=== PATIENT | female | born 1970 | race Caucasian/White ===

== ENCOUNTER → 2022-01-08 08:14 | Outpatient (BNVA) | payer OTHER, SELFPAY | PROVIDERS: PCP Family Medicine; Visit Provider Hospitalist | DX: U09.9 Post COVID-19 condition, unspecified (principal); R05.9 Cough, unspecified; R06.00 Dyspnea, unspecified | CPT/HCPCS: 94010; 94640 ==

== ENCOUNTER 2022-01-14 13:10 | Outpatient (REF) | payer OTHER, SELFPAY ==
--- NOTE | ~2022-01-14 | XR_ITS ---
EXAMINATION: XR CHEST CLINICAL INFORMATION: Chest pain COMPARISON: None TECHNIQUE: 2 views of the chest were obtained. FINDINGS: No significant abnormality is noted involving the heart, lungs, mediastinum, bony thorax or soft tissues. XR/XR chest 2V IMPRESSION: Unremarkable examination.
--- NOTE | 2022-01-14 13:20 | ECG_ITS ---
Test Reason : COPD Blood Pressure : / mmHG Vent. Rate : 086 BPM Atrial Rate : 086 BPM P-R Int : 116 ms QRS Dur : 082 ms QT Int : 356 ms P-R-T Axes : 025 062 061 degrees QTc Int : 426 ms Normal sinus rhythm Normal ECG No previous ECGs available Referred By: Osmani Kilgore Electronically Signed By:NICHOLE KING
[2022-01-14 13:25] LABS: MANUAL DIFF FLAG NO
[2022-01-14 13:53] LABS: Basophils Percent Auto 0.4 % (0-2); Hematocrit 41.1 % (37.0-47.0); Hemoglobin 12.8 g/dl (12.0-16.0); Imm Gran Abs Auto 0.09 X10*3/uL (0.00-0.03); Imm Gran Pct Auto 0.9 % (0.0-0.4); Lymphocytes Percent Auto 10.2 % (20-40); Mean Corpuscular HGB Conc 31.1 g/dl (31.0-35.0); Mean Corpuscular Hemoglobin 28.1 pg (27.0-33.0); Mean Corpuscular Volume 90.3 fL (80.0-98.0); Mean Platelet Volume 9.8 fL (9.4-12.3); Monocytes Absolute Auto 0.3 X10*3/uL (0.1-1.2); Monocytes Percent Auto 2.9 % (2-11); Neutrophils Absolute Auto 8.3 x10*3/uL (2.0-8.3); Neutrophils Percent Auto 85.6 % (45-73); Platelet Count 328 X10*3/uL (160-400); Red Blood Count 4.55 X10*6/uL (4.20-5.50); Red Cell Distribution Width 13.3 % (11.0-16.0); White Blood Count 9.7 X10*3/uL (4.8-10.8)
[2022-01-14 14:00] LABS: D Dimer High Sensitivity < 150 NG/ML
[2022-01-14 14:18] LABS: Anion Gap 16 (12-20); Blood Urea Nitrogen 13 mg/dL (9-16); Carbon Dioxide 28 mmol/L (22-29); Chloride 104 mmol/L (96-108); Estimated Glomerular Filt Rate > 60; Glucose Random 108 mg/dL (60-115); Potassium 4.6 mmol/L (3.3-5.1); Sodium 143 mmol/L (135-145)
[2022-01-14 14:20] LABS: Troponin-I High Sensitivity < 3.5 ng/L (<3.5-17.0)
[2022-01-14 15:15] LABS: Erythrocyte Sedimentation Rate 7 MM/HR (0-20)
== END 2022-01-14 13:11 | disposition home or self-care (01) ==
LOC: HO.LAB 13:10
PROVIDERS: Visit Provider Hospitalist
DX: R07.9 Chest pain, unspecified (principal); J44.9 Chronic obstructive pulmonary disease, unspecified
CPT/HCPCS: 36415; 71046; 80048; 84484; 85025; 85379; 85652; 93005